=== PATIENT | male | born 1955 | race Caucasian/White ===

== ENCOUNTER 2024-02-14 07:30 | Outpatient (RCR) | payer MEDICARE, BC, SELFPAY ==
--- NOTE | 2024-01-08 15:44 | PT.OPEX ---
PT [place] [facility] Eval PT [facility] Outpatient Eval Start: 01/02/24 16:40 Freq: Status: Active Protocol: Document 01/08/24 13:43 MLS (Rec: 01/08/24 15:42 MLS [id number]) E-signed By Nery Cartagena DPT Physical Therapy Outpatient Evaluation Insurance Information Recert Due Date 04/06/24 Insurance Name Medicare B,Blue [employer] Medical Diagnosis Right hamstring m strain S76.311A strain of muscle, fascia and tendon of posterior m group at thigh level, right thigh, initial encounter Treating Diagnosis Right hamstring m strain Referring MD Nicole Saldivar, DRIVER SERVICE TECHNICIAN Subjective Subjective Patient is a 68 year old male who presents to physical therapy with signs and symptoms consistent with right hamstring muscle strain. He states that he likes to play pickleball. He states that he pulled his left hamstring in July but that is fine now. He states that at the end of October he was playing pickleball again and strained his right hamstring. He states that he let it rest and it was getting better. He states that then he went curling on December 16 and was sweeping and it strained /pulled his right hamstring again. He states that he is icing his hamstring and resting and it is getting better but not 100%. He states that he did have some bruising in his hamstring and calf muscle about 5-6 days later. He did go to urgent care, but they did not do a / MRI or xray. He states that normally he plays pickleball once a week, curling twice a week and daily walking 3 miles . Aggravating factors include : exercise, standing, walking . Alleviating factors include : icing, Ibuprofen, resting. No significant past medical history. Patient would like to have less pain with all activities through physical therapy sessions. Pain Comments Today: 2/10 on a 0-10 pain scale with 10 = extreme pain At its worst: 8/10 At its best: 2/10 Current Work Status Retired Occupation [employer] Objective Other/Pertinent Objective GAIT/FUNCTIONAL MOBILITY Single leg stance: no increase in pain Squat: no increase in pain KNEE ROM WNL bilaterally with hamstring tightness noted on right more than left HIP ROM Flexion: 100 L. 100 R Internal Rotation: 20 L, 20 R External Rotation: 25 L. 25 R Abduction: 30 L. 30 R LLE MMT: Hip flexion: R 4/5 L 4/5 Hip abduction: R 4/5 L 4/5 Hip extension: R 4/5 L 4/5 Knee flexion: R 5/5 L 5/5 Knee extension: R 5/5 L 5/5 SPECIAL TEST -Reis Compression: negative -Hip quadrant test: negative -RUEL test: negative -FADIR test: negative -Trochanteric Bursitis Test- Bursitis: negative JOINT MOBILITY/PALPATION Severe tightness and tenderness with palpation of right hamstring and gastroc in prone position TX: Access Code: [email or web address] URL: [email or web address] Date: 01/08/2024 Prepared by: Nery Cartagena Exercises - Seated Hamstring Stretch - 1 x daily - 7 x weekly - 3 sets - 10 reps - Gastroc Stretch on Wall - 1 x daily - 7 x weekly - 3 sets - 10 reps - Supine Hamstring Stretch - 1 x daily - 7 x weekly - 3 sets - 10 reps Functional Test Performed & Score 62/80 A score increase of 6 points shows a significant improvement in lower extremity function. Assessment Assessment/Impression Pt is a 68 year old male who presents with concerns of a right hamstring muscle strain. Patient also has notable objective findings including tenderness to palpation and decreased strength which are also likely contributing to the problem. Patient is a good candidate for skilled therapy to target deficits described above. Skilled PT intervention is necessary for use of therapeutic exercise manual therapy, neuromuscular re- education, gait training, and therapeutic activity. Functional impairments include difficulty with: standing, walking, exercising, and ADLs. See appropriate sections of PT eval for complete list of goals and POC. D/C plan and criteria is for pt to achieve the goals as listed below or until max rehab potential is met. Pt was agreeable with plan of care and goals established. Primary Functional Limitations standing walking exercising ADLs Plan of Care Rehabilitation Potential Good Physical Therapy Goals Within 10-12 weeks: 1.Pt will demonstrate independence in performance of home exercise program with the use of video and/or handouts in order to optimize functional mobility and reduce risk for re-injury. 2.Pt will demonstrate consistent HEP compliance to ensure progress in reaching established goals during course of care. 3.Patient will be able to curl for up to one hour without pain. 4.Patient will report pain levels <2/10 with all activities in order to improve functional mobility at home, work and during functional leisure activities. 5.Patient will be able to walk up to one mile without pain. 6.Patient will be able to play pickleball for 1 match without pain. 7.Pt will be able to ascend/ descend 1 flight of stairs in order to perform ADLs pain free. 8.Pt will exhibit 5 pt improvement in Lower Extremity Functional Scale to demonstrate functional improvement and progress towards goals Coordination/Communication With Referral Source Treatment Plan/Direct Interventions Gait Training,Joint Mobilization,Manual Therapy, Neuromuscular Re-ed, Therapeutic Activities, Therapeutic Exercises, Ultrasound Patient Will Be Discharged From Therapy Independently Progressing Evaluation Billing Untimed Code Treatment Minutes 30 Complexity Low Certification Information Provider Signature Required Yes Provider Signature Shows Agreement With POC & Medical Necessity Physician NPI Number Write NPI# Here Physician Comment/Change : Physician Signature & Date Requested Please Sign/Date Here
== END 2024-05-06 08:27 | disposition home or self-care (01) ==
PROVIDERS: Visit Provider Nurse Practitioner
DX: S76.311A Strain of muscle, fascia and tendon of the posterior muscle group at thigh level, right thigh, initial encounter (principal); Z51.89 Encounter for other specified aftercare
CPT/HCPCS: 97110; 97140; 97161

== ENCOUNTER 2024-06-27 13:35 | Outpatient (CLI) | payer MEDICARE, BC, SELFPAY | END 2024-06-27 13:36 | disposition home or self-care (01) | PROVIDERS: PCP Family Medicine; Visit Provider Family Medicine | DX: E78.5 Hyperlipidemia, unspecified (principal); G25.81 Restless legs syndrome; G47.00 Insomnia, unspecified; I10 Essential (primary) hypertension; R21 Rash and other nonspecific skin eruption; Z12.5 Encounter for screening for malignant neoplasm of prostate | CPT/HCPCS: 80053; 80061; 82728; 84443; G0103 ==

== ENCOUNTER 2024-08-01 08:00 | Outpatient (CLI) | payer MEDICARE, BC, SELFPAY ==
--- NOTE | 2024-08-01 09:19 | P.ANES_ITS ---
Anesthesia Charges Start Date/Time Anesthesia Start Date: 08/01/24 Anesthesia Start Time: 08:35 Stop Date/Time Anesthesia Stop Date: 08/01/24 Anesthesia Stop Time: 09:12 Coding CPT Codes CPT Codes: BRETT LWR INTST NDSC NOS - [id number] ([id number]) P2 - PATIENT W/MILD SYST DISEASE, QK - PLUMBING ENGINEER 2-4 CNCRNT ANES PROC, QX - GLOBAL ACCOUNT DIRECTOR SVC W/ MD MED DIRECTION
--- NOTE | 2024-08-01 09:19 | W.ANESCHARGE ---
Anesthesia Charges Start Date/Time Anesthesia Start Date: 08/01/24 Anesthesia Start Time: 08:35 Stop Date/Time Anesthesia Stop Date: 08/01/24 Anesthesia Stop Time: 09:12 Coding CPT Codes CPT Codes: BRETT LWR INTST NDSC NOS - [id number] ([id number]) P2 - PATIENT W/MILD SYST DISEASE, QK - SAP SECURITY CONSULTANT 2-4 CNCRNT ANES PROC, QX - DANCE HALL HOSTESS SVC W/ MD MED DIRECTION
--- NOTE | 2024-08-01 09:23 | P.ANES_ITS ---
Anesthesia Charges Start Date/Time Anesthesia Start Date: 08/01/24 Anesthesia Start Time: 08:35 Stop Date/Time Anesthesia Stop Date: 08/01/24 Anesthesia Stop Time: 09:12 Coding CPT Codes CPT Codes: BRETT LWR INTST NDSC NOS - [id number] ([id number]) P2 - PATIENT W/MILD SYST DISEASE, QK - VOTING MACHINE REPAIRER 2-4 CNCRNT ANES PROC, QX - BASKETBALL PLAYER SVC W/ MD MED DIRECTION
--- NOTE | 2024-08-01 09:23 | W.ANESCHARGE ---
Anesthesia Charges Start Date/Time Anesthesia Start Date: 08/01/24 Anesthesia Start Time: 08:35 Stop Date/Time Anesthesia Stop Date: 08/01/24 Anesthesia Stop Time: 09:12 Coding CPT Codes CPT Codes: BRETT LWR INTST NDSC NOS - [id number] ([id number]) P2 - PATIENT W/MILD SYST DISEASE, QK - HAND BUFFER 2-4 CNCRNT ANES PROC, QX - SLIP FEEDER SVC W/ MD MED DIRECTION
== END 2024-08-01 08:01 | disposition home or self-care (01) ==
LOC: OP CLINIC 08:01
PROVIDERS: PCP Family Medicine; Visit Provider Surgery
DX: Z12.11 Encounter for screening for malignant neoplasm of colon (principal); Z86.0109 Personal history of other colon polyps; D12.0 Benign neoplasm of cecum; D12.3 Benign neoplasm of transverse colon; D12.4 Benign neoplasm of descending colon
CPT/HCPCS: 00811; 45385; 88305; J2704

== ENCOUNTER 2024-08-07 07:51 | Outpatient (CLI) | payer MEDICARE, BC, SELFPAY | END 2024-08-07 07:52 | disposition home or self-care (01) | LOC: NFLDREF 08-14 03:12 | PROVIDERS: PCP Family Medicine; Referring Provider Family Medicine; Visit Provider Family Medicine | DX: D72.10 Eosinophilia, unspecified (principal); I10 Essential (primary) hypertension | CPT/HCPCS: 80048 ==

== ENCOUNTER 2024-09-03 19:16 | Emergency (ER) | payer MEDICARE, BC, SELFPAY ==
--- OUTSIDE RECORDS SUMMARY | 2024-09-03 19:18 | XMS_ITS | Clinical Summary ---
Author Organization [facility] Address [address] [place] [address] Care Team Providers Care Art Psychotherapist Name Role Phone Maximilian Bucio M.D. Primary Care Provider Source Comments Patient records contain information from all sites at [facility]. For routine questions regarding patient records, call [phone] during business hours, M-F 8:00 AM - 5:00 PM Central Time. Record requests for emergency care only can be directed to [phone] at any time.[facility] Allergies Active Allergy Reactions Criticality Noted Date Comments Pollen Extracts Itching,Cough 03/24/2021 Medications * This document contains information received from the source organization and may not represent a complete record from that organization. ibuprofen (ADVIL,MOTRIN) 200 mg tablet Take 400 mg by mouth every 6 (six) hours as needed for pain. 400-600 mg Active Allergy Relief, cetirizine, 10 mg tablet TAKE ONE TABLET BY MOUTH EVERY DAY NEEDED FOR ALLERGIES 30 tablet 2 Active polyethylene glycol-electroly wendy (GoLYTELY) 236-22.74-6.74 -5.86 gram solutionIndicati ons:Screening Cancer Colon Drink 1st portion of prep at 6 PM the evening before. 2nd portion must be started 3 hours before and finished 2 hours prior to report time 4000 mL 4 Active rosuvastatin (CRESTOR) 20 mg tabletIndication s:Dyslipidemia Take 1 tablet (20 mg total) by mouth daily. 90 tablet 3 4 Active SUMAtriptan (Imitrex) 50 mg tabletIndication s:Migraine With Aura Not Intractable Without Status Migrainosus TAKE 1 TABLET BY MOUTH NEEDED MIGRAINE. MAY REPEAT DOSE IN 2 HOURS IF MIGRAINE IS UNRESOLVED. DO NOT EXCEED 200 MG IN 24 HOURS. 9 tablet 3 4 Active lisinopriL 10 mg tabletIndication s:Hypertension Essential Primary Take 1 tablet (10 mg total) by mouth daily. 90 tablet 3 5 Active pramipexole (Mirapex) 0.5 mg tabletIndication s:Restless Leg Syndrome TAKE ONE TABLET BY MOUTH AT BEDTIME 90 tablet 3 5 Active Active Problems Problem Noted Date Diagnosed Date Hypertension Essential Primary 02/29/2024 Dyslipidemia 02/29/2024 Overweight Body Mass Index 25-29.9 Adult 021 Restless Leg Syndrome 04/07/2020 Screening Cancer Colon 04/07/2020 Overview (04/07/2020): Added automatically from request for surgery [id number] Adjustment Disorder With Depressed Mood Resolved Problems Problem Noted Date Diagnosed Date Resolved Date COVID-19 Infection 12/24/2020 2 Encounters Date Type Department Care Team Description 07/23/2024 Refill [facility] Department of Family Medicine in [place], [place] [address] [place] [address] Maximilian Bucio M.D. Med Refill 06/18/2024 Orders Only [facility] Maximilian Bucio M.D. from Last 3 Months Immunizations Immunization Administration Dates Next Due H1N1 All Forms 03/02/2009 H1N1 Inj 03/20/2017 HZV (ZOSTAVAX) 11/20/2014 Influenza Split Preservative Free ID 03/01/2012 Influenza, Injectable, Mdck, Preservative Free, Quadrivalent 01/08/2019 Influenza, Injectable, Mdck, Quadrivalent 2017 Influenza, Quadrivalent, Adj uvanted, Preservative Free 02/03/2023,02/02/2022,02/05/2021 PPSV23 04/07/2020 RZV (SHINGRIX) 09/09/2021,06/10/2021 SARS-COV-2 (COVID-19) - MODERNA(Discontinued) 05/21/2020,04/23/2020 Tdap 04/09/2012 influenza trivalent high dose (HD)(PF) influenza trivalent vaccine (6 months and older)(PF) 02/21/2011,02/09/2010 influenza vaccine quad (FLUZ ONE/FLUARIX) (6 months and older)(PF) 02/14/2018,02/24/2014 Family History Medical History Relation Name Comments Diabetes Brother Akira COPD Father Diabetes Grandfather Atrial fibrillation Mother Restless legs syndrome Sister 2 Danette Relation Name Status Comments Brother Akira Father Grandfather Mother Sister 1 Jorge Alive Sister 2 Danette Alive Sister 3 Viviana Alive Sister 4 Patricia Alive Social History Tobacco Use Types Packs/Day Years Used Date Smoking Tobacco: Never Smokeless Tobacco: Never Alcohol Use Standard Drinks/Week Comments No 0 (1 standard drink = 0.6 oz pur e alcohol) [facility] Utilities Answer Date Recorded In the past 12 months has e [employer], gas, oil, or water [employer] threatened to shut off services in your home? No 05/23/2023 Humiliation, Afraid, Rape, and Kick questionnair e Answer Date Recorded Fear of Current or Ex-Partner Not on file Emotionally Abused Not on file 05/25/2020 Physically Abused Not on file 05/25/2020 Within the last year, have y ou been raped or forced to have any kind of sexual activity by your partner or ex-partner? No 05/25/2020 Social Connection and Isolat ion Panel [NHANES] Answer Date Recorded In a typical week, how many times do you talk on the phone with family, friends, or neighbors? More than three times a week 05/25/2020 How often do you get togethe r with friends or relatives? Three times a week 05/25/2020 Attends Scientologist Services Not on file 05/25 Active Member of Clubs or Organizations Not on f ile 05/25/2020 Attends Club or Organization Meetings Not on manoj e 05/25/2020 Are you , , di vorced, , never , or living with a partner? 05/25/2020 AUDIT-C Answer Date Recorded Q1: How often do you have a drink containing alc ohol? Never 05/25/2020 Average Number of Drinks Not on file 021 Frequency of Binge Drinking Not on file 10/2020 Overall Financial Resource Strain (CARDIA) Answe r Date Recorded How hard is it for you to pa y for the very basics like food, housing, medical care, and heating? Not very hard 05/25/2020 PHQ-2 Answer Date Recorded PHQ-2 Score 0 05/23/2023 [facility] of Occupat ional Health - Occupational Stress Questionnaire Answer Date Recorded Do you feel stress - tense, restless, nervous, or anxious, or unable to sleep at night because your mind is troubled all the time - these days? To some extent 05/25/2020 Exercise Vital Sign Answer Date Recorde d On average, how many days pe r week do you engage in moderate to strenuous exercise (like a brisk walk)? 5 days 05/23/2023 On average, how many minutes do you engage in exercise at this level? 30 min 05/23/2023 Hunger Vital Sign Answer Date Recorded Within the past 12 months, y ou worried that your food would run out before you got the money to buy more. Never true 05/23/19 24 Within the past 12 months, t he food you bought just didn't last and you didn't have money to get more. Never true 05/23/2023 PRAPARE - Transportation Answer Date Re corded In the past 12 months, has l ack of transportation kept you from medical appointments or from getting medications? No 07/2023 In the past 12 months, has l ack of transportation kept you from meetings, work, or from getting things needed for daily living? No 05/23/2023 Depression Answer Date Recor ded PHQ-9 Total Score (max 27) 2 06/10 Nutrition Answer Date Recorded On average, how many serving s of fruits and vegetables do you eat per day (serving size is equal to 1 cup or approximately the size of a tennis ball)? 0-2 05/23/2023 Dental Answer Date Recorded Dental: Regular Dentist Yes 01/01/20 23 Employment Answer Date Recorded Employment status Retired 05/23/2023 Housing Stability Answer Date Recorded What is your living situation today? I have a [facility] place to live 05/23/2023 Education Answer Date Recorded What is the highest level of school you have completed or the highest degree you have received? Some college, no degree 11/27/2018 Sex and Gender Information Value Date Recorded Sex Assigned at Male 05/23/2023 11:00 AM BISCUIT MAKER Legal Sex Male 8:07 PM BISCUIT MAKER Gender Identity Male 06/22/2021 10:08 AM CDT Sexual Orientation Choose not to disclose 2020 1:54 PM BISCUIT MAKER Last Filed Vital Signs Vital Sign Reading Time Taken Comments Blood Pressure 148/84 02/29/2024 10:56 AM BISCUIT MAKER Pulse 60 02/29/2024 10:56 AM BISCUIT MAKER Temperature 35.8 C (96.4 F) 02/29/2024 10:52 AM BISCUIT MAKER Respiratory Rate 16 10/18/2022 9:55 AM CDT Oxygen Saturation 99% 12/25/2020 9:32 AM CDT Inhaled Oxygen Concentration - - Weight 87.5 kg (193 lb) 02/29/2024 10:52 AM BISCUIT MAKER Height 175.9 cm (5' 9.25) 06/14/2023 10:26 AM C DT Body Mass Index 28.29 06/14/2023 10:26 AM CDT Plan of Treatment Health Maintenance Due Date Last Done Comments CT Colonography 1955 Cologuard 1955 Pneumococcal vaccine (50+ years) (2 of 2 - PCV) 04/07/2021 04/07/2020 DTaP,Tdap,and Td Vaccines (2 - Td or Tdap) 04/09/2022 04/09/2012 Colonoscopy 04/13/2023 04/13/2020, 06/03/2015 Colorectal Cancer Surveillance 04/13/2023 COVID-19 Vaccine ( season) 2023 02/03/2023, 02/02/2022, 02/17/2021, Additional history exists Depression Screening (Annual PHQ-2) 03/20/2024 Fall Risk Screen (Annual) 03/20/2024 Creatinine Level (Kidney Function Test) 05/21/2024 05/22/2023, 06/25/2021, 09/17/2019, Additional history exists Potassium Level 05/21/2024 05/22/2023, 04/0 10/2021, 09/17/2019, Additional history exists Sodium Level 05/21/2024 05/22/2023, 04/0 10/2021, 09/17/2019, Additional history exists Visit: Medicare Annual Wellness 05/23/2024 05/23/2023 Office Visit for Blood Pressure Check / Re-check 05/29/2024 02/29/2024 Visit: Chronic Disease, age 18+ 02/28/2025 02/29/2024 Fasting Glucose for Diabetes Screening 05/21/2026 05/22/2023, 06/25/2021, 05/25/2020, Additional history exists Lipid (Cholesterol) Screening 05/21/2028 05/22/2023, 06/17/2021, 05/25/2020, Additional history exists Hepatitis C Screening Completed 04/07/2020 Zoster Vaccines Completed 09/09/2021, 05/19, 11/20/2014 Influenza Vaccine Completed 02/29/2024, , 02/02/2022, Additional history exists IPV Vaccines Aged Out No longer eligi ble based on patient's age to complete this topic Procedures Procedure Name Priority Date/Time Associated Diagnosis Comments LIPID PANEL, S Routine 05/22/2023 11:37 AM BISCUIT MAKER Dyslipidemia BASIC METABOLIC PANEL, S/P Routine 05/22/2023 11:37 AM BISCUIT MAKER Monitoring For Therapeutic Drug Therapy COLONOSCOPY 04/13/2020 9:44 AM BISCUIT MAKER HCV AB SCRN W/REFLEX TO HCV PCR, S Routine 04/07/2020 10:16 AM BISCUIT MAKER Hepatitis C from Last 3 Months or Most Recently Relevant to Health Maintenance Results * (ABNORMAL) Lipid Panel (05/22/2023 11:37 AM BISCUIT MAKER) Triglycerides 233(H) mg/dL 05/23/2023 3:14 PM BISCUIT MAKER MKTO Comment: ----REFERENCE VALUE---- Normal: <150 mg/dL Borderline High: 150-199 mg/dL High: 200-499 mg/dL Very High: > or =500 mg/dL Cholesterol, Total 121 mg/dL 2023 3:14 PM BISCUIT MAKER MKTO Comment: ----REFERENCE VALUE---- Desirable: < 200 mg/dL Borderline High: 200 - 239 mg/dL High: > or = 240 mg/dL Cholesterol, LDL, Calculated 49 mg/dL 05/23/2023 3:14 PM BISCUIT MAKER MKTO Comment: ----REFERENCE VALUE---- Desirable: <100 mg/dL Above Desirable: 100-129 mg/dL Borderline High: 130-159 mg/dL High: 160-189 mg/dL Very High: >=190 mg/dL ----ADDITIONAL INFORMATION---- LDL cholesterol calculated using the Edwards/NIH equation. Cholesterol, HDL 35(L) >=40 mg/dL 05/23/2023 3:14 PM BISCUIT MAKER MKTO Cholesterol, Non-HDL, Calculated 86 mg/dL 05/23/2023 3:14 PM BISCUIT MAKER MKTO Comment: ----REFERENCE VALUE---- Desirable: <130 mg/dL Above Desirable: 130-159 mg/dL Borderline High: 160-189 mg/dL High: 190-219 mg/dL Very High: > or =220 mg/dL Fasting (8 HR or more) Unknown 05/23/2023 2:37 PM BISCUIT MAKER MKTO Blood (Blood, Venous) 05/22/2023 11:37 AM BISCUIT MAKER 05/23/2023 2:37 PM BISCUIT MAKER Maximilian Bucio M.D. LAB BLOOD ADD-ON Final Result [facility] [address] [place] [address], [place] [address] * Basic Metabolic Panel (05/22/2023 11:37 AM BISCUIT MAKER) Potassium, P 4.4 3.6 - 5.2 mmol/L 05/22/2023 12:24 PM BISCUIT MAKER ERDG Sodium, P 139 135 - 145 mmol/L 05/22/2023 12:24 PM BISCUIT MAKER ERDG Chloride, P 101 98 - 107 mmol/L 05/22/2023 12:24 PM BISCUIT MAKER ERDG Bicarbonate, P 26 22 - 29 mmol/L 05/22/2023 12:24 PM BISCUIT MAKER ERDG Anion Gap, P 12 7 - 15 05/22/2023 12:24 PM BISCUIT MAKER ERDG BUN (Blood Urea Nitrogen), P 19 8 - 24 mg/dL 05/22/2023 12:24 PM BISCUIT MAKER ERDG Creatinine 1.24 0.74 - 1.35 mg/dL 05/22/2023 12:24 PM BISCUIT MAKER ERDG Estimated GFR (eGFR) 63 >=60 mL/min/BSA 05/22/2023 12:24 PM BISCUIT MAKER ERDG Comment: Estimated GFR calculated using the 2020 CKD_EPI creatinine equation. Calcium, Total, P 9.6 8.8 - 10.2 mg/dL 05/22/2023 12:24 PM BISCUIT MAKER ERDG Glucose, P 92 70 - 140 mg/dL 05/22/2023 12:24 PM BISCUIT MAKER ERDG Blood (Blood, Venous) 05/22/2023 11:37 AM BISCUIT MAKER 05/22/2023 11:54 AM BISCUIT MAKER Maximilian Bucio M.D. LAB BLOOD ADD-ON Final Result Performing Organization Address [facility]/State/ZIP Co de Phone Number [place] [address] [address] [address], [address] [place] [address] * COLONOSCOPY (04/13/2020 9:44 AM BISCUIT MAKER) Narrative Procedure Note Edmund Rodriguez M.B.B.S., MMeredith. - 04/13/2020 9:44 AM CST [facility] GI Patient Name: Noe Govea Procedure Date: 04/13/2020 9:44 AM Date of : 1955 Age: 64 Gender: Male Procedure: Colonoscopy Providers: JAKOB Cohen, Maximilian Bucio (OrderingProvider) Referring Provider: Maximilian Bucio Pre-op Diagnoses: High risk colon cancer surveillance: Personal history of colonic polyps Post-op Diagnoses: - One 5 mm polyp in the descending colon, removed with a cold snare. Resected and retrieved. - Four 1 to 3 mm polyps in the descending colon and in the cecum. Biopsied. - Non-bleeding internal hemorrhoids. Recommendation: - Discharge patient to home. - Resume previous diet. - No aspirin, ibuprofen, naproxen, or other non-steroidal anti-inflammatory drugs for 3 days after polyp removal. - Await pathology results. - Return to referring physician as previously scheduled. - Based on today's exam, if all polyps are adenomatous, nextcolonoscopy could be considered in 3 years. This is an interim recommendation only before pathology is finalized,at which point ordering physician may want to refer to [facility] Expertto finalize the recommendations. Follow up recommendations for patients with polyps identified during colonoscopy are impacted by several factors including polyp characteristics (size, number and histology), adequacy of colonic preparation and pertinent family history. For [facility] providers, detailed recommendations are available as an [employer] CareProcess Model: <<[email or web address]>, search forColorectal cancer screening (adult) There may be some circumstances, specifically those patients with a personal or family history of significant colorectal neoplasms where these guidelines may not apply. Consider consultation in Gastroenterology for all other polypfindings or for patients who are not at average risk. Findings: The perianal and digital rectal examinations were normal. A 5 mm polyp was found in the descending colon. The polyp was semi-sessile. The polyp was removed with a cold snare. Resection and retrieval were complete. Four flat polyps were found in the descending colon and cecum. The polyps were 1 to 3 mm in size. These were biopsied with a cold jumbo forceps for histology. Non-bleeding internal hemorrhoids were found during retroflexion. The hemorrhoids were small. Retroflexion in the right colon was performed. Medicines: Fentanyl 125 micrograms IV, Midazolam 5 mg IV Estimated Blood Loss: Estimated blood loss: none. Complications: No immediate complications. Procedure Details: The patient was seen, evaluated, and history reviewed. Airway and heart and lung exams were performed and were satisfactory for plannedsedation care. The risks, benefits and alternatives for the procedure and sedation were discussed andinformed consent was obtained. A procedural pause was conducted in the presence of assisting personnelto verify the correct patient identity and procedureto be performed. Throughout the procedure, the patient's blood pressure, pulse, and oxygen saturations were monitored continuously. The Colonoscope was introduced under directvision through the anus and advanced to the cecum, identified by appendiceal orifice and ileocecal valve. The colonoscopy was performed without difficulty. The patient tolerated the procedure fairly well. The quality of the bowel preparation was evaluated using the BBPS ([place] Bowel Preparation Scale) with scores of: Right Colon =2 (minor amount of residual staining, smallfragments of stool and/or opaque liquid, but mucosa seen well), Transverse Colon = 2 (minor amount of residual staining, small fragments of stooland/or opaque liquid, but mucosa seen well) and LeftColon = 2 (minor amount of residual staining, small fragments of stool and/or opaque liquid, butmucosa seen well). The total BBPS score equals 6. The quality of the bowel preparation was good. Sedation: Moderate (conscious) sedation was administered by the endoscopy nurse and supervised by the endoscopist. The following parameters were monitored: oxygen saturation, heart rate, blood pressure, andresponse to care. Dr. Edmund Rodriguez, JAKOB 04/13/2020 10:38:22 AM This report has been signed electronically. Number of Addenda: 0 Note Initiated On: 04/13/2020 9:44 AM Maximilian Bucio M.D. GI PROCEDURE ORDERABLES Final Re sult * HCV Ab Scrn w/Reflex to HCV PCR, Serum (04/07/2020 10:16 AM BISCUIT MAKER) HCV Ab Screen, S Negative Negative 04/08/2020 8:02 AM BISCUIT MAKER [facility] Comment:Yhbqei-[id number] rat io is <1.00. Blood (Blood, Venous) 04/07/2020 10:16 AM BISCUIT MAKER 04/08/2020 7:01 AM BISCUIT MAKER Maximilian Bucio M.D. LAB MICROBIOLOGY - BLOOD ORDERAB LES Final Result [facility] [address] [place] [address] [facility] Dept. 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 [address] [place] [id number] [facility] - General 03/24/20
--- OUTSIDE RECORDS SUMMARY | 2024-09-03 19:18 | XMS_ITS | Encounter Summary ---
Author Organization [facility] Address [address] [place] [address] Care Team Providers Care Health Coach Name Role Phone Maximilian Bucio M.D. Primary Care Provider [phone] Reason for Visit * Reason Comments Med Refill Encounter Details Date Type Department Care Team (Late st Contact Info) Description 07/23/2024 Refill [facility] Department of Family Medicine in [place], [place] [address] [place] [place] [address] Maximilian Bucio M.D. [address] [place] [id number] Med Refill Social History Tobacco Use Types Packs/Day Years Used Date Smoking Tobacco: Never Smokeless Tobacco: Never Alcohol Use Standard Drinks/Week Comments No 0 (1 standard drink = 0.6 oz pur e alcohol) [facility] Utilities Answer Date Recorded In the past 12 months has [employer], gas, oil, or water company threatened to shut off services in your [...] relatives? Three times a week 05/25/2020 Attends [employer] Services Not on file 05/25 Active Member [...] Answer Date Recorded PHQ-2 Score 0 05/23/2023 [facility] of Occupat ional Health - Occupational Stress [...] Answer Date Recorded Dental: Regular Dentist Yes 03/20/19 Employment Answer Date Recorded Employment status Retired 05/23/2023 Housing Stability Answer Date Recorded What is your living situation today? I have a [facility] place to live 05/23/2023 Education Answer Date Recorded What is the highest level of school you have completed or the highest degree you have received? Some college, no degree 11/27/2018 Sex and Gender Information Value Date Recorded Sex Assigned at Male 05/23/2023 11:00 AM BALLET MASTER/MISTRESS Legal Sex Male 8:07 PM BALLET MASTER/MISTRESS Gender Identity Male 06/22/2021 10:08 AM CDT Sexual Orientation Choose not to disclose 2020 1:54 PM BALLET MASTER/MISTRESS documented as of this encounter Miscellaneous Notes * Telephone Encounter - Irving Silva V. - 07/25/2024 6:44 AM CDT Recent Visits Date Type Provider Dept 02/29/24 Office Visit Myranda Horner M.D. [facility] Showing recent visits within past 365 days with a meds authorizing provider and meeting all other requirements Future Appointments No visits were found meeting these conditions. Showing future appointments within next 90 days with a meds authorizing provider and meeting all other requirements documented in this encounter Plan of Treatment Not on file documented as of this encounter Visit Diagnoses Diagnosis Restless Leg Syndrome documented in this encounter Additional Health Concerns Assessment Noted Time PHQ-9 Depression Total Score: 2 06/11/19 22 2:00 PM CDT documented as of this encounter Care Teams Health Coach Relationship Specialty Start Date End Date Maximilian Bucio M.D. [address] [place] [address] PCP - General 03/24/20 documented as of this encounter
[2024-09-03 19:21] VITALS: BP 137/84; PULSE 88; RESP 16; TEMP 36.7; O2SAT 97; BMI 27.3
--- NOTE | 2024-09-03 19:29 | ED_ITS ---
HPI - Skin/Abscess/Foreign Bdy General Time Seen by Provider: 19:29 Date Seen: 09/03/24 Chief complaint: Skin/Abscess/Foreign Body Stated complaint: Bite on back of RT leg, possible bug or spider Time Seen by Provider: 09/03/24 19:29 Source: patient and RN notes reviewed Mode of arrival: ambulatory Limitations: no limitations History of Present Illness HPI narrative: This 69-year-old male is coming in with a lesion on the back of his right leg. He had been in the garden on Monday, did get 2 small bug bites on his right calf. Those are really bothering him. He went for a walk later that day, had put pants on. When he was walking, felt a little stinging sensation on the back of that thigh. He later found bite. The area has become more red around it. T here is no pain, he describes it as being intensely itchy. He has had no fevers or chills. His tetanus is not up-to-date, he states Dr. Valerio did request to get it updated, per his chart it was last given on 04/09/2012. He does agree to take this today. He has had cellulitis before, he had it on the back of his hand and in his left groin with a rash. He remembers feeling quite ill and being sick with these. He is not feeling like that now. Related Data Previous Rx's ?Medication ?Instructions ?Recorded peg 3350-electrolytes 236 240 ml PO Q10M #4,000 mL gram-22.74 gram-6.74 gram-5.86 gram solution (Golytely) lisinopril 20 mg tablet 20 mg PO QDAY #90 tabs 07/24 pramipexole 0.5 mg tablet 1 mg (2 x 0.5 mg) PO DAILY # 180 07/24/24 tabs rosuvastatin 20 mg tablet 20 mg PO QPM #90 tabs sumatriptan succinate 50 mg tablet 50 mg PO QDAY PRN m igraine 07/24/24 headache #10 tabs Allergies Allergy/AdvReac Type Severity Reaction Status Date / Time No Known Drug Allergies Allergy Verified 09/03/24 19:20 Review of Systems Narrative: As per HPI. PFSH PFSH Medical History Anxiety ?F41.9 - Anxiety disorder, unspecified (ICD-10) History of SCC (squamous cell carcinoma) of skin (05/25/20) ?Z85.828 - Personal history of other malignant neoplasm of skin (ICD-10) Migraines ?G43.909 - Migraine, unspecified, not intractable, without status migrainosus (ICD-10) Seasonal allergies ?J30.2 - Other seasonal allergic rhinitis (ICD-10) Rash ?R21 - Rash and other nonspecific skin eruption (ICD-10) Epidermoid cyst of skin of cheek ?L72.0 - Epidermal cyst (ICD-10) Colon polyps (2018) ?K63.5 - Polyp of colon (ICD-10) Adjustment disorder with depressed mood ?F43.21 - Adjustment disorder with depressed mood (ICD-10) Stool incontinence ?R15.9 - Full incontinence of feces (ICD-10) Insomnia ?G47.00 - Insomnia, unspecified (ICD-10) Dyslipidemia ?E78.5 - Hyperlipidemia, unspecified (ICD-10) RLS (restless legs syndrome) ?G25.81 - Restless legs syndrome (ICD-10) HTN (hypertension) ?I10 - Essential (primary) hypertension (ICD-10) Surgical History History of appendectomy (1978) ?Z90.49 - Acquired absence of other specified parts of digestive tract (ICD- 10) H/O right inguinal hernia repair (2012) ?Z98.890 - Other specified postprocedural states (ICD-10) ?Z87.19 - Personal history of other diseases of the digestive system (ICD-10) S/P lateral meniscus repair of left knee (~2012) ?Z98.890 - Other specified postprocedural states (ICD-10) History of medial meniscus repair of right knee (~2014) ?Z98.890 - Other specified postprocedural states (ICD-10) S/P eye surgery (02/2024) ?Z98.890 - Other specified postprocedural states (ICD-10) Family History Mother TIA (transient ischemic attack), Onset Age: 90 Atrial fibrillation Maternal Grandfather Diabetes Father Alcohol dependence COPD (chronic obstructive pulmonary disease) Brother Alcohol dependence Alcoholic cirrhosis of liver Diabetes Daughter Alcohol dependence Sister RLS (restless legs syndrome) Social History Narrative: , retired [employer], 3 adult children Exercise pickle ball once a week, curling twice a week, walks 2 miles 5 days week Lifetime nonsmoker Does not drink alcohol No drug use What is your current living situation?: I presently have a place to live Problems where you live: no known problems In the past 12 months, utilities in danger of being shut off: no In past 12 months, lack of transportation kept you from medical appts, meetings, work, or getting things needed for daily living: no In the past 12 mos, have been you worried that your food would run out before you had money to buy more?: never true In the past 12 mos, the food you bought just didn't last and you didn't have money to buy more?: never true How often does anyone, including family, friends and others, physically hurt you : never How often does anyone, including family, friends and others, insult or talk down to you: never How often does anyone, including family, friends and others, threaten you with harm: never How often does anyone, including family, friends and others, scream or curse at you: never Exam Const: Vital Signs, click to edit/add: Vital Signs - 24 hr 09/03/24 19:21 Temperature 98.0 F Pulse Rate [Pulse Oximeter] 88 Respiratory Rate 16 Blood Pressure [Ri ght Upper Arm] 137/84 Pulse Oximetry 97 Oxygen Delivery Me thod Room Air Patient is alert, interactive, no apparent distress. Ambulatory into the ED of his own accord. CV regular rate and rhythm, no murmur, normal S1-S2. On his right posterior upper lateral calf, has 2 small dime-sized bug bites with slightly pinkish change, mildly raised, juxtaposed each other, no surrounding erythema or swelling. Calf itself is not swollen, no lower extremity edema. On the backside his thigh well above the knee is a central nickel sized erythematous area with excoriated/scabbed small punctate center, this area is slightly raised, indurated but no fluctuance. Around this is an irregular margin of about 2-3 cm of slightly pinkish skin change. It is not significantly indurated or swollen. It is not tender when I palpate, there is no fluctuance. This certainly looks like a bug bite reaction. Does not look like a target lesion, there is no retained tick. Documenting provider has reviewed patient's vital signs: yes Course Course ED Course: Patient is around 48 hours after a probable bug bite. We discussed that they inject chemicals into the skin causing inflammatory reactions. The itching is really what makes me feel that this is just a reaction to the bug bite. This area does not seem to be cellulitic yet, really is not warm or looking like there is any secondary cellulitis. We did discuss his tetanus being updated, he does understand he might get some short-lived muscle aches and low-grade fever. We discussed signs and symptoms at the site of the bug bite that would clue into cellulitis. He has had cellulitis before and understands the difference. I will give him a prescription for Keflex 500 mg t.i.d. x7 days to be taken and filled if there are concerns. If he is unsure or would want the wound looked at, it is stressed to him to follow-up. Will give him Zyrtec 10 mg here as pharmacies in facilities are closed right now. This will help with the itching and the reaction. Recommend continuing this for the next couple of days, can take it up to twice a day. Will avoid Benadryl in him, discuss that Zyrtec is a ?switch cleaner antihistamine over Benadryl. Discussed rationale for avoiding Benadryl orally Vital Signs Vital signs: Initial Vital Signs Temperature 98.0 F 09/03/24 19:21 Temperature Source Temporal Artery Scan 09/03/24 19:21 Pulse Rate 88 09/03/24 19:21 Respiratory Rate 16 09/03/24 19:21 Blood Pressure 137/84 09/03/24 19:21 Blood Pressure Mean 101 09/03/24 19:21 Pulse Oximetry 97 09/03/24 19:21 Oxygen Delivery Method Room Air 09/03/24 19:21 Vital Signs Temperature 98.0 F 09/03/24 19:21 Pulse Rate 88 09/03/24 19:21 Respiratory Rate 16 09/03/24 19:21 Blood Pressure 137/84 09/03/24 19:21 Pulse Oximetry 97 09/03/24 19:21 Oxygen Delivery Method Room Air 09/03/24 19:21 Temperature 98.0 F 09/03/24 19:21 Pulse Rate 88 09/03/24 19:21 Respiratory Rate 16 09/03/24 19:21 Blood Pressure 137/84 09/03/24 19:21 Pulse Oximetry 97 09/03/24 19:21 Oxygen Delivery Method Room Air 09/03/24 19:21 Medications Administered Medications: Generic Name Dose Route Start Last Admin Trade Name Freq PRN Reason Stop Dose Admin Cetirizine HCl 10 mg 09/03/24 19:37 09/03/24 19:47 Cetirizine Hcl 10 Mg Tablet PO 09/03/24 19:38 10 mg DAILY ONE Administration Discharge Plan Discharge Clinical Impression: Bug bite without infection Patient Disposition: Home, Self-Care Condition: Stable Instructions: Insect Bite or Sting (ED) Additional Instructions: You are given Zyrtec here tonight. This is an antihistamine which will help diminish the bug bite reaction. Can take Zyrtec up to twice a day as needed for the next few days to help minimize symptoms, this is over the counter. You can put ice pack on the area to help decrease itching as well. If the area is becoming more swollen, developing more intense redness that is becoming painful, have fevers, need to consider cellulitis. Bug bites typically do not become infected on their own, sometimes we may see it after people start itching or scratching due to the bug bite feeling itchy. Usually this is a later finding and not within a couple of days of the bug bite. I am going to send you a prescription for an antibiotic cephalexin that you can fill if you feel this is becoming infected. If there is any question or concern about this area, it is always recommended that you seek re-evaluation if you have any concern. The fact that it is intensely itchy right now supports a bug bite reaction. Activity Level: No Restrictions Prescriptions: No Action lisinopril 20 mg tablet 20 mg PO QDAY Qty: 90 1RF rosuvastatin 20 mg tablet 20 mg PO QPM Qty: 90 3RF pramipexole 0.5 mg tablet 1 mg PO DAILY Qty: 180 3RF sumatriptan succinate 50 mg tablet 50 mg PO QDAY PRN (Reason: migraine headache) Qty: 10 1RF Rx Instructions: Take 1 tablet as soon as migraine aura starts peg 3350-electrolytes [Golytely] 236-22.74-6.74 -5.86 gram recon soln 240 ml PO Q10M Qty: 4000 0RF Rx Instructions: until fecal effluent is clear Follow Up/Referrals: Darlin Valerio MD [Primary Care Provider, Family Practice] [facility] Info Inst[facility]
[2024-09-03] MEDS: CETIRIZINE HCL 10 MG TABLET PO (19:47)
[2024-09-03] MEDS: TETANUS/DIPHTH/PERTUSSIS 0.5 ML SYRINGE IM (20:01)
== END 2024-09-03 20:24 | disposition home or self-care (01) ==
PROVIDERS: Emergency Provider Family Medicine; PCP Family Medicine
DX: S80.861A Insect bite (nonvenomous), right lower leg, initial encounter (principal)
CPT/HCPCS: 90471; 90715; 99283; 99284; A9270